=== PATIENT | male | born 1985 | race Caucasian/White ===

== ENCOUNTER 2021-04-10 09:12 | Emergency (ER) | payer OTHER, SELFPAY ==
[2021-04-10 09:26] VITALS: BP 148/99; PULSE 91; RESP 15; TEMP 37.1; O2SAT 98; BMI 32.1
--- NOTE | 2021-04-10 09:27 | W.ED.FEVER ---
HPI - Fever General: Chief Complaint: Nausea/Vomiting/Diarrhea Stated Complaint: D/V/N, fevor Time Seen by Provider: 04/10/21 09:27 History of Present Illness: Mr Osborne is a 36 yo gentleman without significant past medical history who presents to the emergency department due to nausea, vomiting, diarrhea, and fever. He endorses feeling mild fullness in the abdomen on Sunday morning 04/08 however symptoms were very mild. They progressed throughout the day and he began having diarrhea. Diarrhea is watery and profuse, he endorses urge to have bowel movements every 15 minutes or so. He denies associated blood in his stool. He has been mild associated abdominal cramping. In addition he has had nausea and vomiting. Emesis is nonbilious and nonbloody. T-max at home of 102. He has tried onla-gti-[id number] medications and electrolyte solutions however feels that symptoms are worsening and that he is having difficulty keeping up with fluids. Denies recent antibiotic use or travel. He does have exposure to farm animals. 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 No other specific changes in health, exacerbating, relieving factors identified. MD elicited complaint: fever and other Measured temperature: 102 F Exacerbating factors: nothing Relieving factors: nothing Associated symptoms: Reports diarrhea, nausea and vomiting Treatments prior to arrival fever: other Review of Systems General: Reports: 10 or more systems reviewed and unremarkable except in HPI and below GI: Reports: nausea, vomiting and diarrhea [facility] ED PFSH: Medical History (Updated 04/10/21 @ 12:32 by Cesario Pineda MD) No significant past medical history Surgical History (Updated 04/10/21 @ 09:52 by Cesario Pineda MD) No significant past surgical history Social History (Updated 04/10/21 @ 09:52 by Ceasrio Pineda MD) Smoking and tobacco status: never smoked Physical Exam Const: COMMON NORMALS: alert GENERAL APPEARANCE: cooperative and well developed HENMT: COMMON NORMALS: normocephalic and atraumatic HEAD & SCALP: normocephalic and atraumatic Eye: COMMON NORMALS: conjunctivae normal CONJUNCTIVA: Yes conjunctivae normal SCLERA: sclerae normal Neck/C-Spine: COMMON NORMALS: supple GENERAL: Yes trachea midline Resp: COMMON NORMALS: normal respiratory effort EFFORT & INSPECTION: Yes able to speak in complete sentences Cardio: COMMON NORMALS: regular rate and regular rhythm RATE: regular rate RHYTHM: regular rhythm GI: COMMON NORMALS: Soft to palpation PALPATION: Yes Soft to palpation and No Tenderness to palpation present (GI) PERCUSSION: normal to percussion Extremity: GENERAL: Yes normal exam except as noted and No edema Neuro: COMMON NORMALS: moves all extremities SENSORIUM/ORIENTATION: Yes alert and No Orientation impaired Psych: COMMON NORMALS: mental status grossly normal and Normal thought process present THOUGHT PROCESS: Normal thought process present Course ED course: - Patient was seen and evaluated by me at bedside - Patient placed on cardiac monitors, IV access obtained - Initial evaluation notable for exam as above, benign abdominal exam -Fluids and antiemetic given - Labs notable for mild leukocytosis, there is evidence of dehydration and hemoconcentration. Hypokalemia with potassium replenishment ordered. Covid negative. - Upon serial reexamination after treatment the patient was mildly improved after 2 L of fluid. - Based on patient history, evaluation, labs, and imaging as interpreted the most likely cause of the patient's condition is fever, nausea, vomiting, diarrhea. The patient does not have a concerning abdominal exam and overall duration of symptoms is relatively short. I discussed potential treatment options and most likely viral etiology of symptoms. Patient comfortable with further outpatient observation and strict return precautions. - The results of ED evaluation were discussed with the patient including prescriptions and/or symptomatic cares (if applicable) including appropriate and responsible use, followup plan, and return precautions. The patient verbalized understanding and felt safe for discharge. - Patient discharged in satisfactory condition. Note: Click bubbles or prepopulated mcallister in note writing are used for assistance with data collection and billing and are inherently more limited than narrative and other text portions of this note. Please use narrative for additional clinical history and defer to narrative/free test for any case of contradictory information. If information appears in only free text or click bubble it should be considered present or absent as reported. Please contact note investigative writer for clarifications of clinical information or contradictory information. MDM is a brief summary, contradictory or erroneous seeming information should be clarified and full note should be reviewed. Vital Signs: Vital signs: Vital Signs Temperature 98.7 F 04/10/21 09:26 Pulse Rate 91 04/10/21 09:26 Respiratory Rate 15 04/10/21 13:13 Blood Pressure 126/82 04/10/21 13:13 Pulse Oximetry 98 04/10/21 13:13 MDM - Fever Medical Decision Making 36-year-old gentleman without significant past medical history presenting with fever, nausea, vomiting, and diarrhea. Clinically dehydrated. Labs without significantly concerning features. Abdominal exam benign. Patient improved after IV fluids and after discussion patient will be discharged with strict return precautions. Medical Records I reviewed the patient's medical records. Lab Data I reviewed the patient's lab results. : 04/10/21 10:15 04/10/21 10:15 Laboratory Results WBC 12.9 10^3/uL (4.0-10.0) H 04/10/21 10:15 RBC 5.51 10^6/uL (4.1-5.3) H 04/10/21 10:15 Hgb 16.4 g/dL (11.7-16.6) 04/10/21 10:15 Hct 48.1 % (42.0-52.0) 04/10/21 10:15 MCV 87.3 fl (80-94) 04/10/21 10:15 MCH 29.8 pg (28.0-34.0) 04/10/21 10:15 MCHC 34.1 g/dL (30.0-36.0) 04/10/21 10:15 RDW 12.0 % (12.1-15.1) L 04/10/21 10:15 Plt Count 187 10^3/cmm (130-400) 04/10/21 10:15 MPV 11.2 fL (7.4-10.4) H 04/10/21 10:15 Neut % (Auto) 82.2 % 04/10/21 10:15 Lymph % (Auto) 11.1 % 04/10/21 10:15 Mcpherson % (Auto) 6.0 % 04/10/21 10:15 Eos % (Auto) 0.2 % 04/10/21 10:15 Baso % (Auto) 0.2 % 04/10/21 10:15 Neut # (Auto) 10.60 10^3/uL (1.8-7.7) H 04/10/21 10:15 Lymph # (Auto) 1.4 10^3/uL (0.8-4.8) 04/10/21 10:15 Mcpherson # (Auto) 0.8 10^3/uL (0.2-0.9) 04/10/21 10:15 Eos # (Auto) 0.0 10^3/uL (0.0-0.8) 04/10/21 10:15 Baso # (Auto) 0.0 10^3/uL (0.0-0.1) 04/10/21 10:15 Nucleated RBC % (auto) 0 % 04/10/21 10:15 Nucleated RBCs # 0.0 /100WBC 04/10/21 10:15 Sodium 137 mmol/L (136-145) 04/10/21 10:15 Potassium 3.4 mmol/L (3.5-5.1) L 04/10/21 10:15 Chloride 104 mmol/L (98-107) 04/10/21 10:15 Carbon Dioxide 23 mmol/L (22-29) 04/10/21 10:15 Anion Gap 13.4 (5-19) 04/10/21 10:15 BUN 15 mg/dL (6-20) 04/10/21 10:15 Creatinine 1.2 mg/dL (0.7-1.2) 04/10/21 10:15 GFR Calculation 67.8 mL/min (90-130) L 04/10/21 10:15 Glucose 108 mg/dL (65-115) 04/10/21 10:15 Calculated Osmolality 285 mOsm/kg (285-295) 04/10/21 10:15 Calcium 8.6 mg/dL (8.5-10.5) 04/10/21 10:15 Total Bilirubin 0.5 mg/dL (0.15-1.2) 04/10/21 10:15 AST 18 U/L (0-40) 04/10/21 10:15 ALT 23 U/L (0-41) 04/10/21 10:15 Alkaline Phosphatase 156 IU/L (40-130) H 04/10/21 10:15 Total Protein 6.8 g/dL (6.6-8.7) 04/10/21 10:15 Albumin 3.7 g/dL (3.5-5.2) 04/10/21 10:15 Globulin 3.1 g/dL (1.3-4.6) 04/10/21 10:15 Lipase 27 U/L (13-60) 04/10/21 10:15 SARS-CoV-2 Ag (Rapid) Negative (Negative) 04/10/21 10:18 Discharge Plan Discharge Patient Disposition: Home Clinical Impression: Dehydration, Fever, Nausea & vomiting, Diarrhea Condition: Stable Prescriptions: New ondansetron 4 mg tablet,disintegrating 4 mg PO Q8H PRN (Reason: nausea and vomiting) 4 Days Qty: 12 0RF Discharge Orders: Discharge ED (Routine); Ordered 04/10/21 Ordered By: Cesario Pineda Referrals: Subhash Lamar MD [Family Provider] - Discharge Diet: Advance as tolerated and Clear Liquid Discharge Activity: Resume usual activity Patient Instructions: Dehydration (ED), Fever in Adults (ED), Gastroenteritis (ED) Activity Restrictions/Additional Instructions: Thank you for visiting the emergency department. You were seen and evaluated for diarrhea, nausea, vomiting, and fever. The exact cause of your symptoms is unclear however based on physical exam and laboratory findings I do not believe that additional inpatient management is needed. You will be discharged with anti-nausea medication. Please ensure that you are staying hydrated. Your potassium was mildly decreased. Please return to the emergency department for worsening symptoms, dehydration, fevers that do not respond to [id number] medications, worsening abdominal pain, blood in stool or vomit, or anything else that you are concerned about and feel needs emergency department evaluation. Coding Level of Care Code ED Helpdesk Administrator for Triston Piper Exam Comprehensive
[2021-04-10] MEDS: ondansetron 2 mg/ML SDV 2 mL 4 MG IVP (10:28)
[2021-04-10] MEDS: sodium chloride 0.9% 1,000 ML 999 ML IV ×2 (10:28→11:46)
[2021-04-10 10:37] LABS: Basophils % 0.2 %; Eosinophils % 0.2 %; Hematocrit 48.1 % (42.0-52.0); Hemoglobin 16.4 g/dL (11.7-16.6); Lymphocytes # 1.4 10^3/uL (0.8-4.8); Lymphocytes % 11.1 %; Mean Corpuscular HGB Conc 34.1 g/dL (30.0-36.0); Mean Corpuscular Hemoglobin 29.8 pg (28.0-34.0); Mean Corpuscular Volume 87.3 fl (80-94); Mean Platelet Volume 11.2 fL (7.4-10.4); Monocytes # 0.8 10^3/uL (0.2-0.9); Neutrophils % 82.2 %; Nucleated Red Blood Cells % 0 %; Platelet Count 187 10^3/cmm (130-400); Red Blood Count 5.51 10^6/uL (4.1-5.3); White Blood Count 12.9 10^3/uL (4.0-10.0)
[2021-04-10 10:41] VITALS: BP 126/82
[2021-04-10 11:13] LABS: Alanine Aminotransferase 23 U/L (0-41); Albumin Level 3.7 g/dL (3.5-5.2); Alkaline Phosphatase 156 IU/L (40-130); Anion Gap 13.4 (5-19); Aspartate Amino Transferase 18 U/L (0-40); Blood Urea Nitrogen 15 mg/dL (6-20); Calcium 8.6 mg/dL (8.5-10.5); Carbon Dioxide 23 mmol/L (22-29); Chloride 104 mmol/L (98-107); Globulin 3.1 g/dL (1.3-4.6); Glomerular Filtration Rate 67.8 mL/min (90-130); Glucose 108 mg/dL (65-115); Lipase 27 U/L (13-60); Osmolality Calculated 285 mOsm/kg (285-295); Potassium 3.4 mmol/L (3.5-5.1); Sodium 137 mmol/L (136-145); Total Bilirubin 0.5 mg/dL (0.15-1.2); Total Protein 6.8 g/dL (6.6-8.7)
[2021-04-10 11:17] LABS: SARS Covid-2 Antigen Negative (Negative)
[2021-04-10] MEDS: potassium chloride ER 20 mEq Tablet 40 MEQ PO (12:25)
[2021-04-10 13:13] VITALS: BP 126/82; RESP 15; O2SAT 98
== END 2021-04-10 13:14 | disposition home or self-care (01) ==
PROVIDERS: Emergency Provider Emergency Medicine
DX: R11.2 Nausea with vomiting, unspecified (principal); R19.7 Diarrhea, unspecified; R50.9 Fever, unspecified; E86.0 Dehydration; Z20.822 Contact with and (suspected) exposure to COVID-19
CPT/HCPCS: 80053; 83690; 85025; 87426; 87506; 96361; 96374; 99284; J2405; J7030

== ENCOUNTER 2021-07-28 10:56 | Outpatient (CLI) | payer OTHER, SELFPAY | END 2021-07-28 10:57 | disposition home or self-care (01) | PROVIDERS: PCP Family Medicine; Visit Provider Family Medicine | DX: R19.7 Diarrhea, unspecified (principal) | CPT/HCPCS: 87493; 87506 ==

== ENCOUNTER → 2023-08-27 13:40 | Outpatient (BNVA) | payer BC, SELFPAY | PROVIDERS: PCP Family Medicine; Referring Provider Dermatology; Visit Provider Podiatrist Foot & Ankle Surgery | DX: G60.0 Hereditary motor and sensory neuropathy; M21.6X1 Other acquired deformities of right foot; M21.6X2 Other acquired deformities of left foot; M20.41 Other hammer toe(s) (acquired), right foot; M20.42 Other hammer toe(s) (acquired), left foot; M20.31 Hallux varus (acquired), right foot; M20.32 Hallux varus (acquired), left foot | CPT/HCPCS: 73630 ==

== ENCOUNTER 2023-10-23 13:47 | Outpatient (CLI) | payer BC, SELFPAY | END 2023-10-23 13:48 | disposition home or self-care (01) | LOC: SPT 13:48 | PROVIDERS: PCP Family Medicine; Visit Provider Podiatrist Foot & Ankle Surgery | DX: Z46.89 Encounter for fitting and adjustment of other specified devices (principal); G60.0 Hereditary motor and sensory neuropathy | CPT/HCPCS: L3030 ==